=== PATIENT | female | born 1965 | race Caucasian/White ===

== ENCOUNTER 2018-03-12 13:23 | Emergency (ER) | payer OTHER ==
--- NOTE | 2018-03-12 13:59 | ER Document Report ---
ED Medical Screen (RME) - General Chief Complaint: Headache <24 hrs old Stated Complaint: VOMITING Time Seen by Provider: 03/12/18 13:55 Notes: The patient is a 52-year-old female, PMHx TMJ, who presents with a left-sided frontal headache and nausea that started after she woke up this morning. She says she has some mild tingling of left arm and legs. Does not have a history of migraines or headaches. PE: Tachycardia, uncomfortable, CN II-XII intact, no focal weakness I have greeted and performed a rapid initial assessment of this patient. A comprehensive ED assessment and evaluation of the patient, analysis of test results and completion of the medical decision making process will be conducted by additional ED providers. TRAVEL OUTSIDE OF THE [place] IN LAST 30 DAYS: No - Related Data Allergies/Adverse Reactions: No Known Allergies Allergy (Verified 03/12/18 13:42) Physical Exam - Vital signs Vitals: Temp Pulse Resp BP Pulse Ox 98.8 F 119 H 18 152/113 H 100 03/12/18 13:45 03/12/18 13:45 03/12/18 13:45 03/12/18 13:45 03/12/18 13:45 Course - Vital Signs Vital signs: Temp Pulse Resp BP Pulse Ox 98.8 F 119 H 18 152/113 H 100 03/12/18 13:45 03/12/18 13:45 03/12/18 13:45 03/12/18 13:45 03/12/18 13:45
[2018-03-12] MEDS: DIPHENHYDRAMINE HCL 50 MG/ML VIAL IV ONE (14:38)
[2018-03-12] MEDS: METOCLOPRAMIDE HCL INJ/PF 10 MG/2 ML SDV IV ONE (14:38)
[2018-03-12] MEDS: NORMAL SALINE 1000 ML 1,000 ML IV ONE (14:39)
--- NOTE | 2018-03-12 15:16 | ER Document Report ---
ED Headache - General Mode of Arrival: Ambulatory Information source: Patient TRAVEL OUTSIDE OF THE [place] IN LAST 30 DAYS: No <JOHN CHANEL - Last Filed: 03/12/18 18:37> <MARTA BAUTISTA - Last Filed: 03/12/18 18:40> - General Chief Complaint: Headache <24 hrs old Stated Complaint: VOMITING Time Seen by Provider: 03/12/18 13:55 Notes: 52 y.o female with a PMHx of TMJ presents to the ED with a severe LT sided frontal MAURO of onset around midnight last night that has continued since. Pt also reports a sudden onset of nausea, vomiting and mild tingling to her LUE and LLE. Pt reports that she is at a loss for words today. She states that she could not see her phone when holding it and could not see "bits and pieces" of her visual field. Pt denies taking any blood thinners at home, including Aspirin. Pt denies any other medical issues including a PMHx of migraines or headaches, HTN, HLD or DM. (JOHN CHANEL) - Related Data Allergies/Adverse Reactions: No Known Allergies Allergy (Verified 03/12/18 13:42) Past Medical History - General Information source: Patient - Social History Smoking Status: Never Smoker Chew tobacco use (# tins/day): No Frequency of alcohol use: Occasional Drug Abuse: None Family History: Other - aneurysms Patient has suicidal ideation: No Patient has homicidal ideation: No Renal/ Medical History: Denies: Hx Peritoneal Dialysis Past Surgical History: Reports: Hx Hysterectomy <JOHN CHANEL - Last Filed: 03/12/18 18:37> Review of Systems - Review of Systems Constitutional: No symptoms reported EENT: See HPI, Other - partial vision loss Cardiovascular: No symptoms reported Respiratory: No symptoms reported Gastrointestinal: See HPI, Nausea, Vomiting Genitourinary: No symptoms reported Female Genitourinary: No symptoms reported Musculoskeletal: No symptoms reported Skin: No symptoms reported Hematologic/Lymphatic: No symptoms reported Neurological/Psychological: See HPI, Headaches, Tingling, Other - loss for words <JOHN CHANEL - Last Filed: 03/12/18 18:37> Physical Exam <JOHN CHANEL - Last Filed: 03/12/18 18:37> <MARTA BAUTISTA - Last Filed: 03/12/18 18:40> - Vital signs Vitals: Temp Pulse Resp BP Pulse Ox 98.8 F 119 H 18 152/113 H 100 03/12/18 13:45 03/12/18 13:45 03/12/18 13:45 03/12/18 13:45 03/12/18 13:45 - Notes Notes: PHYSICAL EXAM GENERAL: Alert. Appears uncomfortable. HEAD: Normocephalic, atraumatic. EYES: Pupils equal, round, and reactive to light. Extraocular movements intact. Bilateral RT hemianopsia. ENT: Oral mucosa moist, tongue midline. NECK: Full range of motion. Supple. Trachea midline. LUNGS: Clear to auscultation bilaterally, no wheezes, rales, or rhonchi. No respiratory distress. HEART: Tachycardic rate, HR of 110 during exam. Regular rhythm. No murmurs, gallops, or rubs. ABDOMEN: Soft, non-tender. Non-distended. Bowel sounds present in all 4 quadrants. No guarding, rebound, or rigidity. EXTREMITIES: Moves all 4 extremities spontaneously. No edema, radial and dorsalis pedis pulses 2/4 bilaterally. No cyanosis. NEUROLOGICAL: Alert and oriented x3. No slurred speech, has difficulty with word finding. Cranial nerves III through XII grossly intact. Biceps and patellar DTRs 2+ bilaterally. 4/5 strength to LLE and LUE, 5/5 strength to RT sided extremities. PSYCH: Normal affect, normal mood. SKIN: Warm, dry, normal turgor. No rashes or lesions noted. (JOHN CHANEL) Course - Laboratory Result Diagrams: 03/12/18 15:38 03/12/18 15:38 <JOHN CHANEL - Last Filed: 03/12/18 18:37> - Laboratory Result Diagrams: 03/12/18 15:38 03/12/18 15:38 <MARTA BAUTISTA - Last Filed: 03/12/18 18:40> - Re-evaluation Re-evalutation: 03/12/18 15:48 CT scan reveals acute hemorrhage, patient actually looks remarkably good compared to the reading on the CT scan that shows a large acute left-sided intraparenchymal bleed. Patient does have bilateral left hemianopsia, weakness on the left side which is approximately 4 out of 5 and some difficulty with word finding. I did call the transfer line at [facility] who then connected to me with Dr. dorman, after discussing the case with Dr. dorman he stated that I would need to talk to neurosurgery as he is not a neurosurgeon. I clarified that I had initially asked to speak with neurosurgery as this was a intracranial hemorrhage in the transfer line set everything had to be run through neurology first. They are now going to get me the neurosurgeon to discuss this intracranial hemorrhage. 03/12/18 18:38 patient's pain is not controlled with IV acetaminophen, patient will be given fentanyl instead, this has partially controlled her plain, tachycardia and hypertension is decreasing, patient was discussed with Dr. Cifuentes neurosurgery at [facility], he accepts the patient to his service and will have internal medicine consult. Plan currently is to do an angiogram to further elucidate the etiology of the bleed. Patient has been rechecked multiple times, never had any change in her neurologic status, no worsening in her logic status. Nursing has spoken with the patient's , I have spoken personally with the patient's daughter, son-in-law and grandson. All questions have been answered. (MARTA BAUTISTA) - Vital Signs Vital signs: Temp Pulse Resp BP Pulse Ox 98.8 F 119 H 15 142/108 H 100 03/12/18 13:45 03/12/18 13:45 03/12/18 17:01 03/12/18 17:00 03/12/18 17:01 - Laboratory Laboratory results interpreted by me: 03/12/18 03/12/18 03/12/18 15:38 15:38 15:38 WBC 13.1 H Seg Neutrophils % 88.7 H Lymphocytes % 7.6 L Absolute Neutrophils 11.6 H APTT 23.4 L Carbon Dioxide 20 L Creatinine 0.49 L Glucose 144 H ALT 61 H Critical Care Note - Critical Care Note Total time excluding time spent on procedures (mins): 75 <MARTA BAUTISTA - Last Filed: 03/12/18 18:40> Discharge <JOHN CHANEL - Last Filed: 03/12/18 18:37> <MARTA BAUTSITA - Last Filed: 03/12/18 18:40> - Discharge Clinical Impression: Intracranial hemorrhage, Left parietal parenchymal hemorrhage, Left occipital parenchymal hemorrhage, Left tentorial subdural hemorrhage Condition: Critical Disposition: [facility] Scribe Attestation: 03/12/18 18:40 I personally performed the services described in the documentation, reviewed and edited the documentation which was dictated to the scribe in my presence, and it accurately records my words and actions. (MARTA BAUTISTA) Scribe Documentation - Scribe Written by Gladis:: Galdis Zuniga 03/12/18 1525 acting as scribe for :: Rubi <JOHN CHANEL - Last Filed: 03/12/18 18:37>
--- NOTE | 2018-03-12 15:18 | RADIOLOGY REPORT (SQ) ---
EXAM DESCRIPTION: CT HEAD WITHOUT COMPLETED DATE/TIME: 03/12/2018 3:05 pm REASON FOR STUDY: new left-sided headache COMPARISON: None. TECHNIQUE: Axial images acquired through the brain without intravenous contrast. Images reviewed wi th bone, brain and subdural windows. Additional sagittal and coronal reconstructions were generated. Images stored on PACS. All CT scanners at this facility use dose modulation, iterative reconstruction, and/or weight based d osing when appropriate to reduce radiation dose to as low as reasonably achievable (ALARA). [facility]: Dose Right [facility]: CareDose [facility]: Dose Right [facility]: Teradose 4D [facility]: [employer] RADIATION DOSE: mGy. LIMITATIONS: None. FINDINGS: VENTRICLES: Normal size and contour. CEREBRUM: Acute left occipital and posterior temporal parenchymal hemorrhage is present, measuring ab out 8 x 3 cm in size along the lateral edge of the left lateral ventricle. There is local mass effec t with sulcal effacement. There is extension of hemorrhage into the left body lateral ventricle. Mi nimal 45 mm [id number] subfalcine shift. Tiny thin rim left tentorial subdural hemorrhage on coron al images 50-53. These findings were discussed with Dr. Benton, 1509 hours 03/12/2018. CEREBELLUM: No masses. No hemorrhage. No alteration of density. No evidence for acute infarction. EXTRAAXIAL SPACES: Intraventricular extension of hemorrhage into the atrium and body left lateral inderjit tricle. No hydrocephalus. Tiny thin rim 2 mm thick left tentorial subdural hemorrhage. ORBITS AND GLOBE: No intra- or extraconal masses. Normal contour of globe without masses. CALVARIUM: No fracture. PARANASAL SINUSES: No fluid or mucosal thickening. SOFT TISSUES: No mass or hematoma. OTHER: No other significant finding. IMPRESSION: Large acute left occipital and posterior temporal parenchymal hemorrhage with intraventr icular extension. Small adjacent tentorial thin rim subdural acute hemorrhage. Mild mcti-et-yfxah s hift. No hydrocephalus. EVIDENCE OF ACUTE STROKE: Acute brain parenchymal hemorrhage. COMMENT: Pertinent findings on the imaging study reported as a CRITICAL RESULT to ARJUN CRUZ at15:09 on 03/12/2018. Category of Critical Result: Acute intraparenchymal and intraventricular hemorrhage Quality ID # [id number]: Final reports with documentation of one or more dose reduction techniques (e.g., Au tomated exposure control, adjustment of the mA and/or kV according to patient size, use of iterative reconstruction technique) TECHNICAL DOCUMENTATION: JOB ID: [id number] [employer]- All Rights Reserved Reading location - IP/workstation name: [email or web address]Angel [facility]
[2018-03-12] MEDS: ACETAMINOPHEN 1,000 MG/100 ML RTUPB IV ONE (15:36)
[2018-03-12 15:50] LABS: ABSOLUTE MONOCYTES (AUTO) 0.5 10^3/uL (0.1-1.4); ABSOLUTE NEUT (AUTO) 11.6 10^3/uL (1.7-8.2); BASOPHILS % (AUTO) 0.2 % (0-2); HEMATOCRIT 42.2 % (36.0-47.0); HEMOGLOBIN 14.4 g/dL (12.0-15.5); LYMPHOCYTES % (AUTO) 7.6 % (13-45); MEAN CORPUSCULAR HEMOGLOBIN 30.2 pg (27.0-33.4); MEAN CORPUSCULAR HGB CONC 34.2 g/dL (32.0-36.0); MEAN CORPUSCULAR VOLUME 88 fl (80-97); MONOCYTES % (AUTO) 3.5 % (3-13); PLATELET COUNT 252 10^3/uL (150-450); RED BLOOD COUNT 4.78 10^6/uL (3.72-5.28); RED CELL DISTRIBUTION WIDTH 13.3 % (11.5-14.0); SEGMENTED NEUTROPHILS % (AUTO) 88.7 % (42-78); TOTAL CELLS COUNTED % (AUTO) 100 %; WHITE BLOOD COUNT 13.1 10^3/uL (4.0-10.5)
[2018-03-12 15:55] LABS: INTERNATIONAL RATION (INR) 0.96; PARTIAL THROMBOPLASTIN TIME 23.4 SEC (23.5-35.8); PROTHROMBIN TIME 13.3 SEC (11.4-15.4)
[2018-03-12 16:11] LABS: ALANINE AMINOTRANSFERASE 61 U/L (9-52); ALBUMIN 4.6 g/dL (3.5-5.0); ALKALINE PHOSPHATASE 79 U/L (38-126); ANION GAP 18 (5-19); ASPARTATE AMINO TRANSFERASE 30 U/L (14-36); BILIRUBIN,DIRECT 0.3 mg/dL (0.0-0.4); BILIRUBIN,TOTAL 0.8 mg/dL (0.2-1.3); BLOOD UREA NITROGEN 15 mg/dL (7-20); CALCIUM 9.4 mg/dL (8.4-10.2); CARBON DIOXIDE 20 mmol/L (22-30); CHLORIDE 104 mmol/L (98-107); GLUCOSE 144 mg/dL (75-110); POTASSIUM 3.9 mmol/L (3.6-5.0); SODIUM 142.4 mmol/L (137-145); TOTAL PROTEIN 7.9 g/dL (6.3-8.2)
[2018-03-12] MEDS: FENTANYL CITRATE INJ/PF 100 MCG/2 ML AMPUL IV ONE ×2 (17:40→21:46)
--- NOTE | 2018-03-12 21:39 | ER Document Report ---
Doctor's Note Notes: 03/12/18 21:38 The nurses were in contact with [facility] transport and found that the truck that was supposed to be here over an hour and a half ago is not coming and they were inquiring about helicopter transport. I went to check on the patient and found her to be laying in bed stating she felt quite bad with a severe headache and would very much like some additional pain medication. I noticed that her blood pressure was going up and her pulse rate was going up, most likely due to the amount of pain she was in.
[2018-03-12 22:26] VITALS: BP 144/105
== END 2018-03-12 22:25 | disposition short-term general hospital (02) ==
LOC: ER 13:23
DX: I61.5 Nontraumatic intracerebral hemorrhage, intraventricular (principal); I62.00 Nontraumatic subdural hemorrhage, unspecified; G81.94 Hemiplegia, unspecified affecting left nondominant side; R51 Headache; H53.47 Heteronymous bilateral field defects; R20.2 Paresthesia of skin; R11.2 Nausea with vomiting, unspecified; R00.0 Tachycardia, unspecified; I10 Essential (primary) hypertension
CPT/HCPCS: 99284; 96361; 96375; 96365; 36415; 85025; 85610; 85730; 80053; 70450; J1200; J3010; J2765; J7030; J0131